=== PATIENT | male | born 1945 | race Caucasian/White ===

== ENCOUNTER 2018-11-08 12:45 | Emergency (ER) | payer OTHER ==
[2018-11-08 13:00] VITALS: BP 165/85; PULSE 68; TEMP 97.9; BMI 29.7
[2018-11-08] MEDS ORDERED: CYCLOBENZAPRINE HCL 10 MG TABLET (FP) PO ONE (13:02)
[2018-11-08] MEDS ORDERED: IBUPROFEN 600 MG TABLET (FP) PO ONE (13:02)
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
== END 2018-11-08 14:39 | disposition home or self-care (01) ==
LOC: EDBD 12:45 → JERFT 12:45
DX: S13.4XXA Sprain of ligaments of cervical spine, initial encounter (principal); M62.830 Muscle spasm of back; M25.521 Pain in right elbow; V43.52XA Car driver injured in collision with other type car in traffic accident, initial encounter; Y92.414 Local residential or business street as the place of occurrence of the external cause; Y93.89 Activity, other specified; Y99.8 Other external cause status
CPT/HCPCS: 99281-25